=== PATIENT | male | born 1985 | race Caucasian/White ===

== ENCOUNTER 2017-07-17 22:16 | Emergency (ER) | payer SELFPAY ==
[~2017-07-17] VITALS: Ht 185.4 cm; Wt 128.0 kg
[2017-07-17 22:19] VITALS: BP 165/74; PULSE 94; RESP 18; TEMP 98.7; O2SAT 18
[2017-07-17] MEDS ORDERED: ULTR50TA5 PO (22:55)
--- NOTE | 2017-07-17 22:56 | PD ---
HPI . Left foot injury Chief Complaint: Laceration/Skin Injury Time Seen by Provider: 22:47 Travel History International Travel<30 days: No Contact w/Intl Traveler<30days: No Traveled to known affect area: No History of Present Illness HPI Patient presents with a chief complaint of a laceration on his left great toe and second toe. He states that he was walking by a pool and that one of the papers slightly elevated compared to rest. He struck his toes on the paper and suffered the lacerations to the great toe and second toe. He does not recall the date of his last tetanus shot. He states that the pain in his toes is severe. His reports initial difficulty controlling the bleeding but states that the bleeding is now controlled with a pressure dressing. PFSH Past Medical History Tetanus Vaccination: > 5 Years Influenza Vaccination: No Social History Alcohol Use: Yes (occ) Tobacco Use: No Allergies-Medications (Allergen,Severity, Reaction): Coded Allergies: No Known Allergies (Unverified , 07/17/17) Reported Meds & Prescriptions Reported Meds & Active Scripts Active No Active Prescriptions or Reported Medications Review of Systems Except as stated in HPI: all other systems reviewed are Neg Musculoskeletal: Positive: Pain Skin: Positive Other (lacerations) Physical Exam Narrative GENERAL: Awake and alert. SKIN: He has a pulse the pad of his left great toe. He has a laceration to the tip of the second toe which is not gaping. Nails are intact. HEAD: No cephalic/atraumatic. EYES: Pupils are equal. Extraocular movements are intact. NECK: Full range of motion. MUSCULOSKELETAL: No tenderness to palpation of the bones of the left great toe and left second toe. No deformity. NEUROLOGICAL: Nonfocal. PSYCHIATRIC: Appropriate mood and affect. Data Data Last Documented VS Vital Signs Date Time Temp Pulse Resp B/P (MAP) Pulse Ox O2 Delivery O2 Flow Rate FiO2 07/17/17 22:19 98.7 94 18 165/74 (104) 18 Orders Orders Wound Care (07/17/17 22:47) Acetamin-Hydrocod 325-5 Mg ([place] 5-325 (07/17/17 23:00) Tetanus/Diphtheria Tox Adult (Tetanus/Di (07/17/17 23:00) MDM Medical Decision Making Medical Screen Exam Complete: Yes Emergency Medical Condition: Yes Differential Diagnosis Differential diagnosis includes but is not limited to skin laceration, muscular laceration, tendon laceration, neurovascular laceration. Narrative Course The patient presents after a bulging the pad of his left great toe. He also has a laceration of the second toe which does not need suturing. His tetanus will be updated. His wounds will be cleaned and dressed. His has been instructed in wound care. Diagnosis Primary Impression: Avulsion of skin of left foot Qualified Codes: S91.302A - Unspecified open wound, left foot, initial encounter Additional Impression: Toe laceration Qualified Codes: S91.115A - Laceration without foreign body of left lesser toe (s) without damage to nail, initial encounter Additional Instructions: Clean the wound twice daily with soap and water. Apply a thin layer of Neosporin ointment after you wash it. See her doctor for any signs of infection such as increased pain, pus, unusual redness, fever Med/Other Pt SpecificInfo: Prescription(s) given Scripts Tramadol (Ultram) 50 Mg Tab 50 MG PO Q4H Y for PAIN, #12 TAB 0 Refills Prov: Ashley Stratton MD 07/17/17 Disposition: DISCHARGE HOME Condition: Stable Ashley Stratton MD Jul 17, 2017 22:56
[2017-07-17] MEDS ORDERED: ACETAMINOPHEN/HYDROcodone 325 MG/5 MG TAB PO ONE (23:00)
[2017-07-17] MEDS ORDERED: TETANUS/DIPHTHERIA TOXOID ADULT 0.5 ML VIAL IM ONE (23:00)
[2017-07-17 23:31] VITALS: RESP 18
[2017-07-17 23:35] VITALS: BP 142/65
[2017-07-18 00:34] VITALS: BP 142/74
== END 2017-07-17 23:35 | disposition home or self-care (01) ==
LOC: PHEFT 22:16
DX: S91.115A Laceration without foreign body of left lesser toe(s) without damage to nail, initial encounter (principal); S91.302A Unspecified open wound, left foot, initial encounter; W22.09XA Striking against other stationary object, initial encounter; Y93.01 Activity, walking, marching and hiking; Z23 Encounter for immunization
CPT/HCPCS: 90471; 90714